=== PATIENT | female | born 1985 | race Caucasian/White ===

== ENCOUNTER 2024-09-06 01:57 | Emergency (ER) | payer SELFPAY ==
[2024-09-06 01:59] VITALS: BP 108/75
--- NOTE | 2024-09-06 02:02 | ED.GENMED ---
History of Present Illness
General
Chief Complaint: Cold/Flu/URI Symptoms
Source: patient and police
Exam Limitations: none
Time Seen by Provider: 09/06/24 02:01
History of Present Illness
History of Present Illness:
See MDM
Past History
Past History
ED Past Medical History: None
ED Past Surgical History: None
Social History
Tobacco: Smoker
Alcohol: None
Phy Exam
Physical Exam
Physical Exam:
See MDM
Sepsis
Sepsis Screening
Sepsis Assessment: Sepsis Ruled Out
Sepsis Screen
Sepsis Screen: Sepsis Ruled Out
Date: 09/06/24
Time: 03:06
Course
Orders/Labs/Results
Orders:
Orders
09/06/24 02:01
Electrocardiogram (*1) Urgent
Reason for Study: Shortness of Breath
EKG- Treatment ONCE
Diphenhydramine [Benadryl] 25 mg PO NOW STA
Lorazepam [Ativan] 1 mg PO NOW STA
CR Chest Portable - 1 View Urgent
Comment:
Reason For Exam: SOB, Cough
Reason Study Needs to be Portable: Unable to Transport
09/06/24 02:35
Troponin I Urgent
09/06/24 02:57
Ondansetron Injectable [Zofran] 4 mg IV NOW STA
Vital Signs
Initial and Last Documented VS:
Initial Vital Signs
Temp Pulse Resp BP Pulse Ox
98.8 F 104 24 108/75 100
09/06/24 01:59 09/06/24 01:59 09/06/24 01:59 09/06/24 01:59 09/06/24 01:59
Last Documented Vital Signs
Temp Pulse Resp BP Pulse Ox
98.8 F 104 24 108/75 100
09/06/24 01:59 09/06/24 01:59 09/06/24 01:59 09/06/24 01:59 09/06/24 01:59
MDM/Problems Addressed
Differential Diagnosis Includes:
HPI and MDM Narrative:
39-year-old female presenting for medical clearance. Patient presents in please custody from the corrections facility. She has been complaining of chest pain and needed medical clearance. Patient also complaining of shortness of breath and cough.
She is already on Bactrim for skin infection. Patient planes of ear pain and a rash on her abdomen. Patient states the rash is due to the cleaning solution the use of the retirement. She states it is itchy. Patient is also concerned that she is
detoxing from street drugs
Will obtain chest x-ray, EKG and troponin given her complaint. She does have mild rhonchorous breath sounds but patient is a longstanding history of smoking. She complains of left ear pain. The eardrum is mildly erythematous but nonbulging. We
discussed continuing bactrim
Physical exam
General: Well appearing and non-toxic
HEENT: protecting airway. Left TM mildly erythematous but nonbulging
Neck: appears supple
CV: No evidence of cyanosis
Resp: No accessory muscle use. Rhonchorous breath
Abd: Non-distended
Extremities: No deformities
Neuro: alert
Psych: Normal affect
Skin: Mild urticaria to mid lower abdomen
Problems Addressed including Acute and Chronic Conditions affecting care:
1. Shortness of breath, cough and chest pain
Acuity: acute
Prognosis: stable
Details: Potentially viral syndrome. Will obtain EKG, troponin and chest x-ray. Patient already on Bactrim
2. Ear pain
Acuity: acute
Prognosis: stable
Details: No evidence of acute infection. Discussed continuing Bactrim regardless
Updates
Troponin negative
Differential Diagnosis (but not limited to): Drug withdrawal, noncardiac chest pain, pneumonia
Testing considered: COVID and flu
Drug therapy (if applicable): OTC meds, please see d/c instruction regarding Rx drugs
Amount and/or Complexity of Data Reviewed
Clinical info obtained from: Patient
External data reviewed: N/A
Labs I independently reviewed (but not limited to): (Negative
Radiology: X-ray independently reviewed: Chest x-ray clear
Pulse Ox: not hypoxic
EKG independently reviewed: Sinus tachycardia, normal axis, no STEMI
Equipment Cleaner And Tester: N/A
Critical Care: N/A
Risk of Complication:
Social Determinants of health: Poor social support
Discussed with other providers: N/A
Escalation of Care includes Admit/Obs: After being observed in the Emergency Department, pt stable for discharge back to detention
Occasional wrong word or 'sound a like' substitutions may have occurred due to the inherent limitations of voice recognition software. Read the chart carefully and recognize, using context, where substitutions have occurred.
*Critical Care Note
Total Time (30-74mins, 75-104mins- exclusive of procedures): Not Applicable
ED Attending Note
-
Portions of this chart may have been created with voice recognition software.� Occasional wrong word or��sound alike� substitutions may have occurred due to the inherent limitations of voice recognition software.
Discharge Plan
Departure
Patient Disposition: Jail
Date of Disposition: 09/06/24
Time of Disposition: 03:05
Discharge Problem:
Chest pain
Instructions: Chest pain
Activity Restrictions/Additional Instructions:
Nuris Roche is medically stable and cleared for transport back to detention
Discharge Date and Time
Print Language: BRUNEIAN
[2024-09-06] MEDS: ATIVAN 1 MG PO (02:48)
[2024-09-06] MEDS: BENADRYL 25 MG PO (02:48)
[2024-09-06] MEDS: ZOFRAN 4 MG IV (03:03)
[2024-09-06 03:04] LABS: Troponin I 0.013 ng/ml
[2024-09-06 03:25] VITALS: BP 109/72
== END 2024-09-06 03:30 ==
LOC: EMR 01:57
PROVIDERS: EMERGENCY PHYSICIAN Student in an Organized Health Care Education/Training Program
DX: R07.9 Chest pain, unspecified (principal); R06.02 Shortness of breath; H92.02 Otalgia, left ear; F17.200 Nicotine dependence, unspecified, uncomplicated; R05.9 Cough, unspecified
CPT/HCPCS: 99285; 96374; 71045; 84484; 93005